=== PATIENT | female | born 1935 | race Caucasian/White ===

== ENCOUNTER 2017-11-20 18:06 | Emergency (ER) | payer SELFPAY ==
[2017-11-20] MEDS ORDERED: ZOFRAN IV ONE (18:40)
[2017-11-20] MEDS ORDERED: SUBLIMAZE IV ONE (18:40)
[2017-11-20 19:12] LABS: Basophils % (Auto) 0.4 % (0.0-1.8); Eosinophils # (Auto) 0.2 K/mm3 (0.0-0.4); Eosinophils % (Auto) 2.3 % (0.0-4.3); Hematocrit 34.5 % (30.3-42.9); Lymphocytes # (Auto) 1.8 K/mm3 (1.2-5.4); Lymphocytes % (Auto) 18.6 % (13.4-35.0); Mean Corpuscular HGB Conc 35 % (30-34); Mean Corpuscular Hemoglobin 32 pg (28-32); Mean Corpuscular Volume 92 fl (79-97); Monocytes % (Auto) 9.9 % (0.0-7.3); Platelet Count 158 K/mm3 (140-440); Red Blood Count 3.76 M/mm3 (3.65-5.03); Red Cell Distribution Width 13.7 % (13.2-15.2)
--- NOTE | 2017-11-20 20:59 | Cat Scan Report ---
FINAL REPORT EXAM: CT ABDOMEN PELVIS WO CON HISTORY: rt flank pain, hx kidney stones TECHNIQUE: Helical CT scan through the abdomen and pelvis without contrast. Images are reconstructed in the sagittal and coronal planes. PRIORS: None. FINDINGS: Solid organ and bowel evaluation is limited without intravenous contrast. Bowel evaluation is limited without oral contrast. The lung bases are clear. The liver, gallbladder, pancreas, spleen and adrenal glands appear normal. There bilateral renal calcifications most likely vascular in nature. There is no hydronephrosis or ureterolithiasis. The uterus and ovaries are absent. The stomach appears grossly within normal limits. There are no abnormally dilated loops of bowel or acute inflammatory changes. A normal-appearing appendix is identified. There is a relatively large amount of stool throughout the colon. There is diffuse atherosclerotic calcification of the abdominal aorta and iliac and femoral arteries without aneurysm. The abdominal aorta has a normal diameter. There is a left lower quadrant lateral ventral hernia containing normal appearing loop of small bowel. The bones are diffusely demineralized. There are moderate compression fractures from T8 to L2, chronic in appearance. There is multilevel degenerative facet disease IMPRESSION: 1. Question constipation 2. Left lower quadrant lateral ventral hernia containing a normal-appearing loop of small bowel 3. Otherwise, no acute findings
[2017-11-20 21:18] LABS: Bilirubin,Urine NEG (Negative); Blood,Urine NEG (Negative); Color,Urine Yellow (Yellow); Protein,Urine <15 mg/dL mg/dL (Negative); Urobilinogen,Urine < 2.0 mg/dL (<2.0)
[2017-11-20 23:12] VITALS: BP 132/70
--- NOTE | 2017-11-20 23:14 | Emergency Department Report ---
HPI - General Chief Complaint: Back Pain/Injury Time Seen by Provider: 11/20/17 18:38 - HPI HPI: The patient is a 81-year-old female with a history of chronic low back pain, who presents for evaluation of recurrence of her low back pain. The patient is accompanied by her daughters whom sure that she has experienced on and off back pain since multiple falls in [place] greater than 5 years ago. The patient states that she awoke with severe low back pain this morning, constant since onset, 10/10 in severity, sharp in quality, exacerbated with walking or bending over. The patient and her daughters deny that the patient has Maher new trauma or injury to the low back, fall, fever, chills, night sweats, saddle anesthesia, paresthesias, numbness or tingling in the legs, leg weakness, urine or bowel incontinence or retention, difficulty ambulating, or other focal neurological deficits. ED Past Medical Hx - Past Medical History Previous Medical History?: Yes Hx Hypertension: Yes Hx Diabetes: Yes - Surgical History Past Surgical History?: Yes Additional Surgical History: - Social History Smoking Status: Never Smoker Substance Use Type: None - Medications Home Medications: Home Medications Medication Instructions Recorded Confirmed Last Taken Type Back Brace [Ultra Support] 1 each MC PRN PRN #1 each 11/20/17 Unknown Rx HYDROcodone/APAP 5-325 [[place] 1 each PO Q6HR PRN #14 tablet 11/20/17 Unknown Rx 5/325] Ondansetron [Zofran TAB] 4 mg PO Q8HR PRN #20 tablet 11/20/17 Unknown Rx ED Review of Systems ROS: Stated complaint: LOWER BACK PAIN Other details as noted in HPI Constitutional: denies: fever ENT: denies: throat or neck pain Respiratory: denies: cough, shortness of breath Cardiovascular: denies: chest pain Endocrine: denies unexplained weight loss or gain Gastrointestinal: denies: abdominal pain, nausea Genitourinary: denies: dysuria Musculoskeletal: reports back pain denies: leg swelling Skin: denies: rash Neurological: denies: headache Hematological/Lymphatic: denies: easy bleeding or easy bruising Psych: denies sadness or hopelessness Physical Exam - Physical Exam Vital Signs: Vital Signs 11/20/17 11/20/17 18:12 19:05 Temperature 98.4 F Pulse Rate 98 H Respiratory 19 22 Rate Blood Pressure 196/67 O2 Sat by Pulse 100 Oximetry Physical Exam: General: well-nourished, well-developed, no acute distress Head: Normocephalic, atraumatic Eyes: normal sclera ENT: Mucous membranes are pink and moist Neck: trachea midline, neck supple, No neck stiffness, no cervical adenopathy Respiratory: Breath sounds equal bilaterally, no wheezing, rales, or rhonchi Cardio: S1 and S2 present, no murmurs, rubs, gallops, capillary refill is brisk Abdomen: Normoactive bowel sounds, soft abdomen, no tenderness Chest WALL/Back: Tenderness to palpation present to bilateral lumbar paraspinal musculature, normal passive range of motion at the hips intact, no spinous step- off or obvious deformity, ipsi-lateral and contralateral straight leg raise tests are negative. On extremity testing, compartments are soft and pliable, no obvious gross motor strength deficit, 5+ motor strength, including extension of the great toe bilaterally, no muscular atrophy, spasticity, fasciculations, or clonus, no obvious gross sensation deficit including web space between 1st and 2nd toes, reflexes 2+ & symmetric on DTR testing at the knee and ankle joints, distal pulses intact. Musc: No pitting edema Skin: No rash Neuro: no facial drooping, normal speech Psych: Normal affect ED Course Vital Signs 11/20/17 11/20/17 18:12 19:05 Temperature 98.4 F Pulse Rate 98 H Respiratory 19 22 Rate Blood Pressure 196/67 O2 Sat by Pulse 100 Oximetry ED Medical Decision Making - Lab Data Result diagrams: 11/20/17 18:44 11/20/17 18:44 - Medical Decision Making The patient was seen and examined by myself. The patient is placed on a playground monitor and continuous pulse ox. On initial evaluation, the patient was found to be in no distress. No findings on exam concerning for cauda equina syndrome, spinal stenosis, or epidural abscess. The patient is given pain medicine. CT scan of the abdomen and pelvis reveals multiple old lower thoracic and lumbar compression fractures. As the patient has not experienced any new trauma to the back or falls, and as the fractures appear old per the radiologist, and as the patient has no neuro deficits on exam, she is stable for outpatient follow-up and consultation with neurosurgery for potential surgical intervention of her fractures. The patient was reevaluated and reported that their pain significantly improved. The patient is stable for discharge with outpatient follow-up. The patient is given follow-up and return instructions. The patient expressed understanding and agreed with the plan. The patient is discharged in stable condition. Critical care attestation.: If time is entered above; I have spent that time in minutes in the direct care of this critically ill patient, excluding procedure time. ED Disposition Clinical Impression: Acute bilateral low back pain without sciatica Compression fracture of thoracic vertebra Qualifiers: Encounter type: initial encounter Fracture type: closed Qualified Code(s): S22.000A - Wedge compression fracture of unspecified thoracic vertebra, initial encounter for closed fracture Compression fracture of lumbar vertebra Qualifiers: Encounter type: initial encounter Lumbar vertebra fracture level: L2 Fracture type: closed Qualified Code(s): S32.020A - Wedge compression fracture of second lumbar vertebra, initial encounter for closed fracture Disposition: DC- TO HOME OR SELFCARE Is pt being admited?: No Does the pt Need Aspirin: No Condition: Stable Instructions: Vertebral Compression Fracture (ED), Acute Low Back Pain (ED) Referrals: MARY ANN SANCHEZ MD [Staff Physician] - 3-5 Days CATRACHITO TIAN MD [Staff Physician] - 3-5 Days Time of Disposition: 22:08
== END 2017-11-20 23:15 | disposition home or self-care (01) ==
LOC: ED 18:06
DX: S22.000A Wedge compression fracture of unspecified thoracic vertebra, initial encounter for closed fracture (principal); S32.020A Wedge compression fracture of second lumbar vertebra, initial encounter for closed fracture; I10 Essential (primary) hypertension; R10.9 Unspecified abdominal pain; M54.5 Low back pain; E11.9 Type 2 diabetes mellitus without complications; W19.XXXA Unspecified fall, initial encounter; Y93.89 Activity, other specified; Y99.8 Other external cause status; Y92.89 Other specified places as the place of occurrence of the external cause
CPT/HCPCS: 36415; 74176; 80053; 81001; 82962; 85025; 96374; 96375; 99284; J2405; J3010